=== PATIENT | male | born 1980 | race Caucasian/White ===

== ENCOUNTER → 2017-07-22 | Outpatient (CLI) | END | disposition home or self-care (01) ==

== ENCOUNTER → 2023-03-31 | Outpatient (CLI) | payer OTHER ==
[~2023-03-31] MED LIST: ALBU90OI INH; ALBU90OI61 INH; ALEVE220 MG; ASPI81CH PO; ATOR40TA PO; AZIT250 PO; CEPH500 PO; CYCL10 PO; GABA100; HYDACE10B PO; HYDACE5 PO; IBUP800 PO; LOSA25 PO; MELO7.5; META800 PO; METCAR500; METO50ER PO; METPRE4DP PO; NAPR500 PO; NITR.4SL SL; Norco 10-325 T1 EACH PO; OMEP20ER PO; OXYACE5T PO; TOBDEXOPSU OS
[2023-03-31 12:43] LABS: BASOPHILS ABSOLUTE AUTO 0.05 K/mm3 (0.00-0.23); BASOPHILS PERCENT AUTO 0 % (0-2); EOSINOPHILS ABSOLUTE AUTO 0.36 K/mm3 (0.00-0.68); EOSINOPHILS PERCENT AUTO 2 % (0-6); Hematocrit 48.8 % (37.0-53.0); Hemoglobin 17.5 g/dL (13.5-17.5); IMMATURE GRAN ABSOLUTE AUTO 0.04 K/mm3 (0.00-0.10); IMMATURE GRAN PERCENT AUTO 0 % (0-1); LYMPHOCYTES ABSOLUTE AUTO 2.26 K/mm3 (0.84-5.20); LYMPHOCYTES PERCENT AUTO 15 % (21-46); MONOCYTES ABSOLUTE AUTO 0.71 K/mm3 (0.16-1.47); MONOCYTES PERCENT AUTO 5 % (4-13); Mean Corpuscular HGB 32.3 pg (26.0-34.0); Mean Corpuscular HGB Conc 35.9 g/dL (31.5-36.5); Mean Corpuscular Volume 90 fL (80-100); Mean Platelet Volume 9.4 fL (9.1-12.4); NEUTROPHILS ABSOLUTE AUTO 11.39 K/mm3 (1.96-9.15); NEUTROPHILS PERCENT AUTO 77 % (41-73); Platelet Count 260 K/mm3 (150-400); RDW Coefficient Variation 11.9 % (11.7-14.2); RDW Standard Deviation 39.2 fL (35.1-46.3); Red Blood Cell Count 5.41 M/mm3 (4.30-5.90); White Blood Cell Count 14.81 K/mm3 (4.00-11.30)
[2023-03-31 12:55] LABS: Albumin, Blood 3.9 g/dL (3.4-5.0); Albumin/Globulin Ratio 1.1 (0.8-1.8); Bilirubin, Total 0.3 mg/dL (0.1-1.0); Bun/Creatinine Ratio 13.3 (12.0-20.0); Calcium, Blood 8.8 mg/dL (8.5-10.1); Creatinine, Blood 1.05 mg/dL (0.60-1.20); Globulin, Blood 3.7 g/dL (2.2-4.0); Potassium, Blood 4.3 mmol/L (3.5-5.5); Total Protein, Blood 7.6 g/dL (6.4-8.2)
== END ==
LOC: LAB 12:39 → LAB SHORT 12:39
PROVIDERS: Emergency Medicine
DX: R10.9 Unspecified abdominal pain (principal)
CPT/HCPCS: 80053; 83690; 85025

== ENCOUNTER 2023-04-11 23:15 | Emergency (ER) | payer OTHER ==
[~2023-04-11] VITALS: Ht 190.5 cm; Wt 93.9 kg
[~2023-04-11 23:15] MED LIST changes: -ASPI81CH PO; -ATOR40TA PO; -LOSA25 PO; -METO50ER PO; -NITR.4SL SL; -OMEP20ER PO
[2023-04-11 23:18] VITALS: BP 144/87
[2023-04-12 00:14] LABS: BASOPHILS ABSOLUTE AUTO 0.04 K/mm3 (0.00-0.23); BASOPHILS PERCENT AUTO 0 % (0-2); EOSINOPHILS ABSOLUTE AUTO 0.29 K/mm3 (0.00-0.68); EOSINOPHILS PERCENT AUTO 2 % (0-6); Hematocrit 47.7 % (37.0-53.0); Hemoglobin 17.1 g/dL (13.5-17.5); IMMATURE GRAN ABSOLUTE AUTO 0.04 K/mm3 (0.00-0.10); IMMATURE GRAN PERCENT AUTO 0 % (0-1); LYMPHOCYTES ABSOLUTE AUTO 3.33 K/mm3 (0.84-5.20); LYMPHOCYTES PERCENT AUTO 27 % (21-46); MONOCYTES ABSOLUTE AUTO 0.76 K/mm3 (0.16-1.47); MONOCYTES PERCENT AUTO 6 % (4-13); Mean Corpuscular HGB Conc 35.8 g/dL (31.5-36.5); Mean Corpuscular Volume 89 fL (80-100); Mean Platelet Volume 9.6 fL (9.1-12.4); NEUTROPHILS ABSOLUTE AUTO 7.83 K/mm3 (1.96-9.15); NEUTROPHILS PERCENT AUTO 64 % (41-73); Platelet Count 248 K/mm3 (150-400); RDW Coefficient Variation 11.9 % (11.7-14.2); RDW Standard Deviation 38.8 fL (35.1-46.3); Red Blood Cell Count 5.35 M/mm3 (4.30-5.90); White Blood Cell Count 12.29 K/mm3 (4.00-11.30)
[2023-04-12 00:33] LABS: Albumin, Blood 3.7 g/dL (3.4-5.0); Albumin/Globulin Ratio 1.1 (0.8-1.8); Bilirubin, Total 0.2 mg/dL (0.1-1.0); Calcium, Blood 8.8 mg/dL (8.5-10.1); Globulin, Blood 3.4 g/dL (2.2-4.0); Total Protein, Blood 7.1 g/dL (6.4-8.2)
[2023-04-12] MEDS ORDERED: METO50ER PO (00:49)
[2023-04-12] MEDS ORDERED: ATOR40TA PO (00:51)
[2023-04-12] MEDS ORDERED: LOSA25 PO (00:51)
[2023-04-12] MEDS ORDERED: ASPI81CH PO (00:52)
[2023-04-12] MEDS ORDERED: OMEP20ER PO (00:52)
[2023-04-12] MEDS ORDERED: NITR.4SL SL (16:45)
== END 2023-04-12 04:25 | disposition home or self-care (01) ==
LOC: ER 23:15
PROVIDERS: Emergency Medicine
DX: R07.89 Other chest pain (principal); F17.200 Nicotine dependence, unspecified, uncomplicated; Z79.82 Long term (current) use of aspirin; Z79.899 Other long term (current) drug therapy
CPT/HCPCS: 71046; 80053; 84484; 85025; 93005; 93010; 96374; 99285-25

== ENCOUNTER 2023-04-12 09:16 | Observation (INO) | payer OTHER ==
[~2023-04-12] VITALS: Ht 190.5 cm; Wt 90.9 kg
[2023-04-12] VITALS (8 sets, daily range): BP systolic 130–156; BP diastolic 89–103
[~2023-04-12 09:16] MED LIST changes: +ASPI81CH PO; +ATOR40TA PO; +LOSA25 PO; +METO50ER PO; +OMEP20ER PO
[2023-04-12 10:38] LABS: International Normalized Ratio 1.04; Prothrombin Time Results 10.9 Sec (9.7-11.5)
[2023-04-12 11:41] LABS: Source, Urine Clean Catch
[2023-04-12 11:44] LABS: Appearance, Urine Clear (Clear); Bilirubin, Urine Neg (Neg); Blood, Urine Neg (Neg); Color, Urine Yellow (P-Yellow); Glucose Qualitative, Urine Neg (Neg); Ketones, Urine Neg (Neg); Leukocyte Esterase, Urine Neg (Neg); Nitrite, Urine Neg (Neg); Protein, Urine Neg (Neg); Specific Gravity, Urine 1.015 (1.003-1.022); Urobilinogen, Urine NORM (Normal); pH, Urine 6.5 (5.0-8.0)
--- NOTE | 2023-04-12 13:00 | NUR ---
PATIENT ADMIT TO PCU. DR. LONG AT BEDSIDE. MANAGER BRAND IN TO PICK PATIENT UP. PATIENT LEFT FOR MANAGER BRAND AT 1240. FANTA AT BEDSIDE FOR ADMIT.
--- NOTE | 2023-04-12 14:00 | NUR ---
PATIENT RETURNS TO ROOM FROM COMMUNITY RELATIONS ASSISTANT, REMAINS AT BEDSIDE. RIGHT RADIAL SITE WNL. TR BAND AND ARM BOARD IN PLACE. THIS RN EDUCATED ABOUT RADIAL PRECAUTIONS. VITALS SIGNS STABLE. POST VITALS IN PROGRESS. DR. QUEVEDO CALLED AND HOLDING PARAMETERS PLACED ON PO METOPROLOL. BLOOD SUGAR CHECKS AND LR DISCONTINUED. PATIENT EATING SNACK, SITTING UP IN BED AT THIS TIME.
--- NOTE | 2023-04-12 16:39 | NUR ---
DR. FERNANDEZ BY TO SEE PATIENT. PLAN FOR DISCHARGE ONCE TR BAND/SITE IS RECOVERED. DISCHARGE ORDERS IN PLACE. ORDERS FROM DR. FERNANDEZ FOR METOPROLOL SUCCINATE 50 MG PO NOW AND TO DC METOPROLOL SUCCINATE. ORDERS IN PLACE.
[2023-04-12] MEDS ORDERED: NITR.4SL SL (16:45)
--- NOTE | 2023-04-12 17:22 | NUR ---
NO ACUTE CHANGES, PATIENT REMAINS ALERT AND ORIENTED. VITAL SIGNS STABLE. DENIES CHEST PAIN/PRESSURE/PALPITAIONS. RIGHT RADIAL SITE WNL. TR BAND REMOVED AND FULLY RECOVERED. DISCHARGE INSTRUCTIONS REVIEWED WITH PATIENT AND . THIS RN DISCUSSED MEDICATIONS, FOLLOW UP APPOINTMENT, BLOOD PRESSURE GOALS, RIGHT RADIAL SITE PRECAUTIONS AND SIGNS/SYMPTOMS OF WHEN TO RETURN. IV REMOVED. PATIENT LEFT UNIT WITH ALL PERSONAL BELONGINGS INCLUDING DISCHARGE PACKET.
== END 2023-04-12 17:38 | disposition home or self-care (01) ==
LOC: ER 09:16 → PCU 09:17
PROVIDERS: Internal Medicine Cardiovascular Disease; ADMIT Student in an Organized Health Care Education/Training Program
DX: I20.0 Unstable angina (principal); I10 Essential (primary) hypertension; E78.5 Hyperlipidemia, unspecified; K21.9 Gastro-esophageal reflux disease without esophagitis; F17.210 Nicotine dependence, cigarettes, uncomplicated; J44.9 Chronic obstructive pulmonary disease, unspecified; Z88.5 Allergy status to narcotic agent; E66.3 Overweight
CPT/HCPCS: 76937; 81003; 84484; 85610; 85730; 93005; 93010; 99152; 99153; 99285-25; A9270; C1769; C1887; C1894; J1644; J2250; J3010; J7030; J7050; Q9967

== ENCOUNTER → 2023-11-14 | Outpatient (CLI) | payer OTHER ==
[~2023-11-14] MED LIST changes: +NITR.4SL SL
[2023-11-18 20:36] LABS: B PERTUSSIS/PARAPERTUSS SOURCE Nasopharyngeal; BORD PARAPERTUSSIS BY PCR Not Detected; BORDETELLA PERTUSSIS BY PCR Not Detected
== END ==
LOC: LAB SHORT 09:06 → LAB 09:06
PROVIDERS: Physician Assistant
DX: R05.1 Acute cough (principal)
CPT/HCPCS: 87798